=== PATIENT | male | born 1990 | race Two or more races ===

== ENCOUNTER 2016-04-21 20:01 | Emergency (ER) | payer SELFPAY ==
[~2016-04-21] VITALS: Ht 170.2 cm; Wt 68.0 kg
[2016-04-21 20:15] VITALS: BP 129/75
[2016-04-21] MEDS ORDERED: ONDANSETRON ODT 4 MG TAB.RAPDIS PO ONE (20:30)
[2016-04-21] MEDS ORDERED: ACETAMINOPHEN 500 MG TABLET PO ONE (20:30)
[2016-04-21] MEDS ORDERED: IBUPROFEN 800 MG TABLET. PO ONE (20:30)
[2016-04-21 20:56] LABS: OBC FLU VALID
--- NOTE | 2016-04-21 21:43 | PHYS DOC ---
Past Medical History Past Medical History: No Pertinent History Past Surgical History: No Surgical History Alcohol Use: Occasionally Drug Use: None Adult General Chief Complaint Chief Complaint: COUGH HPI HPI Patient is a 26 year old man who presents with subjective fevers, cough dry in nature, sore throat, diarrhea and vomiting for 3 days. Review of Systems Review of Systems Constitutional: fever Eyes: Denies change in visual acuity, redness, or eye pain [] HENT: sore throat [] Respiratory: cough Cardiovascular: No additional information not addressed in HPI [] GI: nausea, vomiting,diarrhea [] : Denies dysuria or hematuria [] Musculoskeletal: Denies back pain or joint pain [] Integument: Denies rash or skin lesions [] Neurologic: Denies headache, focal weakness or sensory changes [] Endocrine: Denies polyuria or polydipsia [] Current Medications Current Medications Current Medications Medications (Trade) Dose Ordered Sig/Rizwan Start Time Stop Time Status Last Admin Dose Admin Acetaminophen (Tylenol) 1,000 mg 1X ONCE 04/21/16 20:30 04/21/16 20:31 DC 04/21/16 20:34 1,000 MG Ibuprofen (Motrin) 800 mg 1X ONCE 04/21/16 20:30 04/21/16 20:31 DC 04/21/16 20:34 800 MG Ondansetron HCl (Zofran Odt) 4 mg 1X ONCE 04/21/16 20:30 04/21/16 20:31 DC 04/21/16 20:35 4 MG Allergies Allergies Allergies Coded Allergies Type Severity Reaction Last Updated Verified No Known Drug Allergies 04/21/16 No Physical Exam Physical Exam Constitutional: Well developed, well nourished, no acute distress, non-toxic appearance. [] HENT: Normocephalic, atraumatic, bilateral external ears normal, oropharynx moist, no oral exudates, nose normal. [] posterior pharynx with moderate erythema no exudate Eyes: PERRLA, EOMI, conjunctiva normal, no discharge. [] Neck: Normal range of motion, no tenderness, supple, no stridor. [] Cardiovascular:Heart rate regular rhythm, no murmur [] Lungs & Thorax: Bilateral breath sounds clear to auscultation [] Abdomen: Bowel sounds normal, soft, no tenderness, no masses, no pulsatile masses. [] Skin: Warm, dry, no erythema, no rash. [] Back: No tenderness, no CVA tenderness. [] Extremities: No tenderness, no cyanosis, no clubbing, ROM intact, no edema. [] Neurologic: Alert and oriented X 3, normal motor function, normal sensory function, no focal deficits noted. [] Psychologic: Affect normal, judgement normal, mood normal. [] Current Patient Data Vital Signs Vital Signs Date Time Temp Pulse Resp B/P Pulse Ox O2 Delivery O2 Flow Rate FiO2 04/21/16 20:15 102.2 129 20 94 Room Air 102.2 Lab Values Laboratory Tests Test 04/21/16 20:22 Influenza Type A Antigen Negative (NEGATIVE) Influenza Type B Antigen Negative (NEGATIVE) EKG EKG [] Radiology/Procedures Radiology/Procedures [] Course & Med Decision Making Course & Med Decision Making Pertinent Labs and Imaging studies reviewed. (See chart for details) Patient is in the ED with a sore throat cough nausea vomiting and diarrhea. Temperature in the ED was 102.2. Heart rate was also 129, patient was given Tylenol and Motrin, temperature came down to 99.7 heart rate is coming down currently 113. Negative influenza A or B. Chest x-ray interpreted by Dr. Goss is negative for any acute findings. Patient is in no distress. The diarrhea and vomiting Probably viral. His symptoms are probably viral. Discharged with instructions to push fluids, maintain good hand hygiene. Discharged with instructions to take Tylenol every 4 hours Motrin every 6. Discharged with Zofran. Most of his symptoms are viral. Instructed to return to the ED if symptoms worsen. Dragon Disclaimer Dragon Disclaimer This electronic medical record was generated, in whole or in part, using a voice recognition dictation system. Departure Departure Impression: Primary Impression: Cough Additional Impressions: Pharyngitis, acute Fever Tachycardia Diarrhea Vomiting Disposition: 01 HOME, SELF-CARE Condition: STABLE Referrals: NO PCP (PCP) Follow-up with your own doctor in the next 7 days Patient Instructions: Diarrhea, [id number], Nausea and Vomiting, Viral and Bacterial Pharyngitis Additional Instructions: You were seen for multiple complaints including sore throat fever vomiting and diarrhea. We put you on Z-Teo, ensure you complete this medications. Take Tylenol every 4 hours and Motrin every 6 hours as needed for fever. Your diarrhea and vomiting are probably viral. Take promethazine as needed for vomiting. Push fluids and maintain good hand hygiene, come back to the emergency room if symptoms worsen. Scripts Promethazine Hcl 25 Mg Tablet1 Tab PO PRN Q6HRS #20 TAB Prov:HUBERT VELÁSQUEZ CHYRON OPERATOR 04/21/16 Azithromycin (Zithromax)250 Mg Tablet1 Pkg PO UD #1 PKG Prov:HUBERT VELÁSQUEZ CHYRON OPERATOR 04/21/16 Problem Qualifiers Additional Impressions: Pharyngitis, acute Pharyngitis/tonsillitis etiology: unspecified etiology Qualified Code: J02.9 - Acute pharyngitis, unspecified Fever Fever type: unspecified Qualified Code: R50.9 - Fever, unspecified Diarrhea Diarrhea type: unspecified type Qualified Code: R19.7 - Diarrhea, unspecified Vomiting Vomiting type: unspecified Vomiting Intractability: non-intractable Nausea presence: unspecified Qualified Code: R11.10 - Vomiting, unspecified HUBERT VELÁSQUEZ CHYRON OPERATOR Apr 21, 2016 21:43
[2016-04-21] MEDS ORDERED: AZIT250T PO (21:50)
[2016-04-21] MEDS ORDERED: PROM25TA10 PO (21:50)
[2016-04-22 07:44] LABS: NEGATIVE OBC STREP NEG; POSITIVE OBC STREP POS
--- NOTE | 2016-04-22 09:22 | RAD ---
Chest, 2 views, 04/21/2016: History: Fever The heart size and pulmonary vascularity are normal. No pulmonary infiltrates are seen. There is no evidence of pleural fluid. IMPRESSION: No acute cardiopulmonary abnormality is detected.
== END 2016-04-21 22:09 | disposition home or self-care (01) ==
LOC: ER 20:01
DX: J02.9 Acute pharyngitis, unspecified (principal); R11.2 Nausea with vomiting, unspecified; R19.7 Diarrhea, unspecified; R50.9 Fever, unspecified; R00.0 Tachycardia, unspecified
CPT/HCPCS: 71020; 87070; 87804; 87880; 99285; Q0162